=== PATIENT | female | born 1975 | race American Indian/Alaskan Native ===

== ENCOUNTER 2020-07-10 09:30 | Outpatient (CLI) | payer OTHER | END 2020-07-10 09:31 | disposition home or self-care (01) | LOC: SPVWC 09:30 | PROVIDERS: ATTEND Obstetrics & Gynecology | DX: Z12.31 Encounter for screening mammogram for malignant neoplasm of breast (principal) | CPT/HCPCS: 77067 ==

== ENCOUNTER 2020-12-10 13:07 | Outpatient (CLI) | payer BC ==
--- NOTE | 2020-12-10 14:26 | Ultrasound Report ---
ULTRASOUND BREAST LEFT LIMITED, 12/10/2020 CLINICAL INFORMATION / INDICATION: ABNORMAL MAMMOGRAM. Patient presents as a callback from screening mammogram for further evaluation of a nodular density in the left breast. TECHNIQUE: Targeted ultrasound evaluation was performed of the area of interest. COMPARISON: Prior mammogram 07/10/2020 FINDINGS: Corresponding with the nodular density seen on prior mammogram, there is an 8 mm benign intramammary lymph node in the left breast 2:00 position located 6 cm from the nipple. No suspicious sonographic a bnormality identified. IMPRESSION: 1. A benign intramammary lymph node accounts for the mammographic finding. No suspicious sonographic abnormality identified. Follow up recommendation: Back to schedule. BI-RADS Category 2: Benign. A normal or "negative" report should not preclude biopsy or follow-up of a clinically suspicious find ing. Signer Name: Sissy Fuller MD Signed: 12/10/2020 2:21 PM Workstation Name: [employer]
== END 2020-12-10 13:08 | disposition home or self-care (01) ==
LOC: MAMMO 13:07
PROVIDERS: ATTEND Obstetrics & Gynecology
DX: R92.2 Inconclusive mammogram (principal); R59.0 Localized enlarged lymph nodes